=== PATIENT | female | born 1945 | race Caucasian/White ===

== ENCOUNTER → 2018-12-03 | Outpatient (CLI) | payer MEDICARE ==
--- NOTE | 2018-12-03 15:08 | CARD ---
MR#: [id number] Date of Study: 12/03/2018 Ordering Physician: HARISH PERES, Referring Physician: HARISH PERES, Tech: Elizabet Kaur APPROVED REPORT EXAM: Two-dimensional and M-mode echocardiogram with Doppler and color Doppler. Other Information Quality : AverageHR: 67bpm INDICATION COPD CAD 2D DIMENSIONS RVDd3.2 (2.9-3.5cm)Left Atrium(2D)2.9 (1.6-4.0cm) IVSd1.6 (0.7-1.1cm)Aortic Root(2D)3.6 (2.0-3.7cm) LVDd4.4 (3.9-5.9cm)LVOT Diameter2.1 (1.8-2.4cm) PWd1.0 (0.7-1.1cm)LVDs2.9 (2.5-4.0cm) FS (%) 35.4 %SV57.6 ml LVEF(%)65.0 (>50%) Aortic Valve AoV Peak Ajay.127.1cm/sAoV VTI23.1cm AO Peak GR.6.5mmHgLVOT Peak Ajay.86.6cm/s LVOT VTI 25.44cmAO Mean GR.3mmHg SERVANDO (VMAX)1.41dl5JJV (VTI)3.88cm2 Mitral Valve MV E Ghjxdaty94.1cm/sMV DECEL FCSO198ws MV A Sytrhuhx21.8cm/sMV DMC17xy E/A Ratio0.6MVA (PHT)2.59cm2 TDI E/Lateral E'7.1E/Medial E'9.5 Pulmonary Valve PV Peak Bqrohypr65.9cm/sPV Peak Grad.3mmHg Tricuspid Valve TR P. Pqqjchia739ze/sRAP PUEZRQZX2lvXw TR Peak Gr.95hxYlDCCW37xoId Pulmonary Vein S1 Laookcgm06.0cm/sD2 Sasyghhy85.7cm/s PVa nfvleqqn714kmmq LEFT VENTRICLE The left ventricle is normal size. There is mild to moderate concentric left ventricular hypertrophy. The left ventricular systolic function is normal and the ejection fraction is within normal range. T he Ejection Fraction is 50-55%. There is normal LV segmental wall motion. Transmitral Doppler flow pa ttern is Grade I-abnormal relaxation pattern. RIGHT VENTRICLE The right ventricle is normal size. There is normal right ventricular wall thickness. The right ventr icular systolic function is normal. ATRIA The left atrium is mildly dilated. The right atrium is mildly dilated. The interatrial septum is inta ct with no evidence for an atrial septal defect or patent foramen ovale as noted on 2-D or Doppler im aging. AORTIC VALVE The aortic valve is normal in structure and function. Doppler and Color Flow revealed trace aortic re gurgitation. There is no significant aortic valvular stenosis. MITRAL VALVE The mitral valve is normal in structure and function. There is no evidence of mitral valve prolapse. There is no mitral valve stenosis. Doppler and Color-flow revealed trace mitral regurgitation. TRICUSPID VALVE The tricuspid valve is normal in structure and function. Doppler and Color Flow revealed trace tricus pid regurgitation with an estimated PAP of 24 mmHg. There is no tricuspid valve stenosis. PULMONIC VALVE The pulmonic valve is not well visualized. Doppler and Color Flow revealed trace pulmonic valvular re gurgitation. There is no pulmonic valvular stenosis. GREAT VESSELS The aortic root is normal in size. The IVC is normal in size and collapses >50% with inspiration. PERICARDIAL EFFUSION There is no evidence of significant pericardial effusion. Critical Notification Critical Value: No <Conclusion> The left ventricular systolic function is normal and the ejection fraction is within normal range. Th e Ejection Fraction is 50-55%. There is normal LV segmental wall motion. There is mild to moderate concentric left ventricular hypertrophy. No significant pulmonary HTN. Signed by : Harish Peres, Electronically Approved : 12/03/2018 15:07:49
== END | disposition home or self-care (01) ==
LOC: ECHO 10:05
PROVIDERS: ATTEND Internal Medicine Cardiovascular Disease
DX: I25.10 Atherosclerotic heart disease of native coronary artery without angina pectoris (principal); J44.9 Chronic obstructive pulmonary disease, unspecified; I51.7 Cardiomegaly; R00.8 Other abnormalities of heart beat
CPT/HCPCS: 93306

== ENCOUNTER → 2019-10-04 | Outpatient (CLI) | payer MEDICARE ==
--- NOTE | 2019-10-04 14:28 | KCIC ---
Bone mineral density exam History: Postmenopausal, osteoporosis, hyperthyroidism, methotrexate use Comparison: None Findings: Bone mineral density examination utilizing DEXA was performed. Left hip bone mineral density of 0.808 g/cm2 corresponds with a T score -1.1, Z score 0.8. The bone mineral density of the lumbar spine was 1.019 g/cm2 which corresponds with a T-score of -0.3, Z score 2.2. By World Congress on Osteoporosis criteria, a T score of 0 to-1 SD is considered to be within normal limits. A T score of -1 to -2.5 SD is considered osteopenia. A T score less than -2.5 SD is considered osteoporosis Impression: 1. There is normal bone density of the lumbar spine although may be artificially elevated due to the presence of degenerative change. There is osteopenia of the left hip. Electronically signed by: John Paul Alvarez MD (10/04/2019 2:25 PM) [id number]
== END | disposition home or self-care (01) ==
LOC: KCIC DEXA 12:34
PROVIDERS: ATTEND Family Medicine
DX: M85.88 Other specified disorders of bone density and structure, other site (principal); M81.0 Age-related osteoporosis without current pathological fracture; E03.9 Hypothyroidism, unspecified; Z78.0 Asymptomatic menopausal state
CPT/HCPCS: 77080

== ENCOUNTER → 2020-04-22 | Outpatient (CLI) | payer MEDICARE ==
[~2020-04-22] MED LIST: REGADENOSON 0.4 MG/5 ML DISP.SYRIN. IV ONE
--- NOTE | 2020-04-22 16:32 | CARD ---
MR#: [id number] Date of Study: 04/22/2020 Ordering Physician: HARISH MARIE, Referring Physician: HARISH MARIE, Tech: Elizabet Kaur APPROVED REPORT EXAM: Two-dimensional and M-mode echocardiogram with Doppler and color Doppler. Other Information Quality : FairHR: 95bpm INDICATION Dyspnea Surgery/Intervention CABG: Date: 2003 2D DIMENSIONS RVDd3.0 (2.9-3.5cm)Left Atrium(2D)2.9 (1.6-4.0cm) IVSd1.0 (0.7-1.1cm)Aortic Root(2D)3.6 (2.0-3.7cm) LVDd4.6 (3.9-5.9cm)LVOT Diameter2.2 (1.8-2.4cm) PWd0.9 (0.7-1.1cm)LVDs2.8 (2.5-4.0cm) FS (%) 38.9 %SV68.9 ml Aortic Valve AoV Peak Ajay.142.9cm/sAoV VTI24.0cm AO Peak GR.8.2mmHgLVOT Peak Ajay.112.7cm/s LVOT VTI 22.62cmAO Mean GR.3mmHg SERVANDO (VMAX)2.31tf7OUW (VTI)3.55cm2 Mitral Valve MV E Mmrmpywe24.8cm/sMV DECEL ZLHM285cj MV A Guzulwdc035.2cm/sMV E Mean Gr.2mmHg MV DLF86kfV/A Ratio0.6 MVA (PHT)2.54cm2 TDI E/Lateral E'8.8E/Medial E'10.8 Pulmonary Valve PV Peak Muzvjwqu50.3cm/sPV Peak Grad.3mmHg Tricuspid Valve TR P. Okdchfvi414fs/sRAP CTWDFGAI9woHe TR Peak Gr.33fuUxJNJR52hiJx Pulmonary Vein S1 Gzeartvl13.5cm/sD2 Vtmfdnwz26.6cm/s PVa vpetqfam572pefk LEFT VENTRICLE The left ventricle is normal size. There is normal left ventricular wall thickness. The left ventricu lar systolic function is normal and the ejection fraction is within normal range. The Ejection Fracti on is 55-60%. There is normal LV segmental wall motion. Transmitral Doppler flow pattern is Grade I-a bnormal relaxation pattern. RIGHT VENTRICLE The right ventricle is normal size. There is normal right ventricular wall thickness. The right ventr icular systolic function is normal. ATRIA The left atrium size is normal. The right atrium size is normal. The interatrial septum is intact wit h no evidence for an atrial septal defect or patent foramen ovale as noted on 2-D or Doppler imaging. AORTIC VALVE The aortic valve is normal in structure and function. Doppler and Color Flow revealed no significant aortic regurgitation. There is no significant aortic valvular stenosis. MITRAL VALVE The mitral valve is normal in structure and function. There is no evidence of mitral valve prolapse. There is no mitral valve stenosis. Doppler and Color Flow revealed trace mitral valve regurgitation. TRICUSPID VALVE The tricuspid valve is normal in structure and function. Doppler and Color Flow revealed trace tricus pid regurgitation with an estimated PAP of 29 mmHg. There is no tricuspid valve stenosis. PULMONIC VALVE The pulmonic valve is not well visualized. Doppler and Color Flow revealed trace pulmonic valvular re gurgitation. GREAT VESSELS The aortic root is normal in size. The IVC is normal in size and collapses >50% with inspiration. PERICARDIAL EFFUSION There is no evidence of significant pericardial effusion. Critical Notification Critical Value: No <Conclusion> The left ventricle is normal size. The left ventricular systolic function is normal and the ejection fraction is within normal range. The Ejection Fraction is 55-60%. Doppler and Color Flow revealed no significant aortic regurgitation. There is no significant aortic valvular stenosis. Doppler and Color Flow revealed trace mitral valve regurgitation. Doppler and Color Flow revealed trace tricuspid regurgitation with an estimated PAP of 29 mmHg. Signed by : Nathen Holliday MD Electronically Approved : 04/22/2020 16:31:40
--- NOTE | 2020-04-23 16:14 | RAD ---
MR#: [id number] Date of Study: 04/22/2020 Ordering Physician: HARISH MARIE, Referring Physician: MARYJANE DOVE Tech: RT Tone VillaltaR) (N) APPROVED REPORT Test Type: Pharmacological Stress Nurse/Tech: Sonia Schulz RN Test Indications: dyspnea Cardiac History: CABG 2003, x-smoker, Medications: See Electronic Medical Record Medical History: See Electronic Medical Record Resting ECG: SR Resting Heart Rate: 81 bpm Resting Blood Pressure: 158/75mmHg Pretest Chest Pain: None Nurse/Tech Notes Lungs CTA, S1S2 Consent: The procedure was explained to the patient in lay terms. Informed consent was witnessed. Carlos Manuel eout was entered into [employer]. History and Stress Test performed by RT Clarita (R) (N) Pharm. Details Pharmacologic stress testing was performed using 0.4mg per 5ml of regadenoson given intravenously ove r 7-10 seconds. Stress Symptoms No chest pain or symptoms. POST EXERCISE Reason for Termination: Infusion complete Max HR: 101 bpm Max Blood Pressure: 147/65mmHg Blood Pressure response to exercise: Normal blood pressure response during stress. Heart Rate response to exercise: normal response Chest Pain: No. Arrhythmia: No. ST Change: No. INTERPRETATION Stress EKG Conclusion: The resting EKG shows a sinus rhythm and nonspecific T wave changes. The stress EKG shows no significant changes from baseline. No EKG evidence of stress-induced ischemia. Imaging Protocol IMAGE PROTOCOL: Rest Tc-99m/stress Tc-99m 1 day Rest: Stress: Viability: Radiopharm.Tc99m NmlcchpvgQb04h Sestamibi Dose10.5mCi 30.3mCi Duration 15min. 15min. Img Date 04/22/2020 04/22/2020 Inj-Img Hqpi11qce. 60min. Rest Admin Site:IV - Right HandAdministrator:RT Clarita (Leatha)(N) Stress Admin Site: IV - Right HandAdministrator: RT Stephan Otto)(N) STRESS DATA End Diast. Vol.51.0mlAv. Heart Rate84.0bpm End Syst. Vol.5.0mlCO Index BSA0.0L/min Myocardial Mass91.0gEject. Jvpvhcyl61.0% Stress Rates Pk. Fill Rate1.83EDV/secLVtime Pk. Fill 138.04msec Pk. Empty Rate3.87ESV/secLVtime Pk. Olyuu559.44msec 1/3 Pk. Fill1.33EDV/sec Stress Scores Regional WT1.00Summed WT3.00 Regional WM0.00Summed WM0.00 LV Perfusion The stress images show a small defect in the inferior lateral wall. The rest images showed no significant defects. Nuclear imaging shows a small area of probable reversible ischemia in the inferior lateral wall. Wall Motion Left ventricular systolic function is normal with an ejection fraction of greater than 70%. LV Perf. Quant 17 Seg. SSS4.00 17 Seg. SRS2.00 17 Seg. SDS2.00 Stress Defect Extent (% LAD)0.00Rest Defect Extent (% LAD)0.00Rev. Defect Extent (% LAD)0.00 Stress Defect Extent (% LCX) 45.00Rest Defect Extent (% LCX)13.80Rev. Defect Extent (% LCX)45.00 Stress Defect Extent (% RCA)0.00Rest Defect Extent (% RCA)0.00Rev. Defect Extent (% RCA)0.00 Stress Defect Extent (% OLIVA)7.80Rest Defect Extent (% OLIVA)2.40Rev. Defect Extent (% OLIVA)7.80 Conclusion 1. No EKG evidence of stress-induced ischemia. 2. Nuclear imaging shows a small area of probable reversible ischemia in the inferior lateral wall. 3. Normal left ventricular systolic function with an ejection fraction of greater than 70%. 4. Moderate risk Lexiscan nuclear stress test. Signed by : Nathen Holliday MD Electronically Approved : 04/23/2020 16:13:42
== END | disposition home or self-care (01) ==
LOC: NM 09:56
PROVIDERS: ATTEND Internal Medicine Cardiovascular Disease
DX: R06.00 Dyspnea, unspecified (principal); Z95.1 Presence of aortocoronary bypass graft; Z87.891 Personal history of nicotine dependence
CPT/HCPCS: 78452; 93017; 93306; A9500; J2785

== ENCOUNTER → 2022-01-14 | Outpatient (CLI) | payer MEDICARE ==
--- NOTE | 2022-01-15 08:59 | CARD ---
MR#: [id number] Date of Study: 01/14/2022 Ordering Physician: HARISH MARIE, Referring Physician: HARISH MARIE, Tech: MERRY PINO [facility] APPROVED REPORT EXAM: Two-dimensional and M-mode echocardiogram with Doppler and color Doppler. Other Information Quality : AverageHR: 92bpm Rhythm : NSRTechnically limited study due to INDICATION Cardiac Disease: CAD 2D DIMENSIONS IVSd0.9 (0.7-1.1cm)LVDd3.2 (3.9-5.9cm) PWd1.0 (0.7-1.1cm)LVDs2.1 (2.5-4.0cm) FS (%) 33.2 %SV25.7 ml LVEF(%)63.2 (>50%) Aortic Valve AoV Peak Ajay.115.1cm/Rachel Peak GR.5.3mmHg LVOT Peak Ajay.91.3cm/s Mitral Valve MV E Erzjwyir57.2cm/sMV DECEL LBFD279km MV A Lkquwaek754.1cm/sE/A Ratio0.3 Pulmonary Valve PV Peak Fqhqqirg958.4cm/s Pulmonary Vein S1 Wfccfulx66.7cm/sD2 Bcyqgtnl27.0cm/s LEFT VENTRICLE The left ventricle is normal size. There is normal left ventricular wall thickness. The left ventricu lar systolic function is normal. The ejection fraction is 55 to 60%. No regional wall motion abnormal ities noted. Transmitral Doppler flow pattern is Grade I-abnormal relaxation pattern. No left ventric le thrombus noted on this study. There is no ventricular septal defect visualized. There is no left v entricular aneurysm. There is no mass noted in the left ventricle. RIGHT VENTRICLE The right ventricle is normal size. There is normal right ventricular wall thickness. The right ventr icular systolic function is normal. ATRIA The left atrium size is normal. The right atrium size is normal. The interatrial septum is intact wit h no evidence for an atrial septal defect or patent foramen ovale as noted on 2-D or Doppler imaging. AORTIC VALVE The aortic valve is mildly calcified. No aortic regurgitation is present. There is no aortic valvular stenosis. There is no aortic valvular vegetation. MITRAL VALVE Mitral annular calcification is mild. There is no evidence of mitral valve prolapse. There is no mitr al valve stenosis. There is no mitral valve regurgitation noted. TRICUSPID VALVE The tricuspid valve is normal in structure and function. There is no tricuspid valve regurgitation no jorge luis. There is no tricuspid valve prolapse or vegetation. There is no tricuspid valve stenosis. PULMONIC VALVE The pulmonary valve is normal in structure and function. There is no pulmonic valvular regurgitation. There is no pulmonic valvular stenosis. GREAT VESSELS The aortic root is normal in size. The ascending aorta is normal in size. The pulmonary artery is nor mal. The IVC is normal in size and collapses >50% with inspiration. PERICARDIAL EFFUSION There is no pleural effusion. There is no evidence of significant pericardial effusion. Critical Notification Critical Value: No <Conclusion> The left ventricular systolic function is normal. The ejection fraction is 55 to 60%. No regional wall motion abnormalities noted. Transmitral Doppler flow pattern is Grade I-abnormal relaxation pattern. There is no evidence of significant pericardial effusion. Signed by : Alfonso Carias, Electronically Approved : 01/15/2022 08:58:29
== END ==
LOC: ECHO 13:53
PROVIDERS: ATTEND Internal Medicine Cardiovascular Disease
DX: I35.1 Nonrheumatic aortic (valve) insufficiency (principal); I25.10 Atherosclerotic heart disease of native coronary artery without angina pectoris
CPT/HCPCS: 93306; C8929